=== PATIENT | male | born 1995 | race Caucasian/White ===

== ENCOUNTER 2019-08-26 08:41 | Emergency (ER) | payer OTHER ==
[~2019-08-26] VITALS: Ht 185.4 cm; Wt 90.9 kg
[2019-08-26 08:51] VITALS: Ht 185.4 cm; Wt 90.9 kg
[2019-08-26 09:17] LABS: CALC OSMOLALITY 278 mosm/kg (275-300); CALCIUM 9.1 mg/dL (8.5-10.1); CARBON DIOXIDE 24.1 mmol/L (21.0-32.0); CHLORIDE - SERUM 101 mmol/L (98-107); CREATININE - SERUM 1.1 mg/dL (0.6-1.3); GLUCOSE 129 mg/dL (74-106); POTASSIUM - SERUM 3.6 mmol/L (3.5-5.1); SODIUM 138 mmol/L (136-145); UREA NITROGEN 15 mg/dL (7-18); eGFR NON AFRICAN AMERICAN 87 mL/min (90-120)
[2019-08-26 09:23] LABS: ALBUMIN 4.5 g/dL (3.4-5.0); ALKALINE PHOSPHATASE 114 U/L (30-120); ALT (SGPT) 36 U/L (10-68); BILIRUBIN - TOTAL 0.67 mg/dL (0.2-1.3); PROTEIN - SERUM 8.2 g/dL (6.4-8.2)
[2019-08-26 09:33] LABS: BASOPHILS 0.4 % (0-2); EOSINOPHILS 1.3 % (0-7); HEMATOCRIT 48.5 % (42.0-54.0); HEMOGLOBIN 16.1 g/dL (13.5-17.5); IMMATURE GRANULOCYTES 0.2 % (0-5); LYMPHOCYTES 40.3 % (15-50); MCH 30.3 pg (26.0-34.0); MCHC 33.2 g/dL (31.0-37.0); MCV 91.3 fL (80.0-100.0); MEAN PLATELET VOLUME 12.2 fL (7.4-10.4); MONOCYTES 8.6 % (2-11); NEUTROPHILS 49.2 % (40-80); PLATELET COUNT 224 10x3/uL (130-400); RBC 5.31 10x6/uL (4.20-6.10); RDW 13.5 % (11.5-14.5); WBC 9.2 10x3/uL (4.8-10.8)
[2019-08-26] MEDS ORDERED: AUGMENTIN 875-11 TAB PO (12:16)
[2019-08-26] MEDS ORDERED: HYDROCODON-ACE1 EAC2 PO (12:16)
[2019-08-26 13:42] VITALS: BP 124/70
== END 2019-08-26 13:42 | disposition home or self-care (01) ==
LOC: D.ER 08:41
PROVIDERS: Family Medicine
DX: S62.603B Fracture of unspecified phalanx of left middle finger, initial encounter for open fracture (principal); S62.605B Fracture of unspecified phalanx of left ring finger, initial encounter for open fracture; X58.XXXA Exposure to other specified factors, initial encounter; S61.309A Unspecified open wound of unspecified finger with damage to nail, initial encounter